=== PATIENT | female | born 1965 | race Caucasian/White ===

== ENCOUNTER → 2016-10-29 | Outpatient (CLI) | payer OTHER ==
[~2016-10-29] MED LIST: ALBUTEROL2.5 MG/31 IH; CIPRO500 MG PO; CIPROFLOXACIN500 M1 PO; IBUPROFEN 800800 M1 PO; IRON325 PO; MACROBID 100 M100 M2 PO; MEDROLDOSEPACK PO; MIRALAX17 GM PO; PEPCID20 MG PO; PERCOCET PO
== END ==
LOC: MRI 06:53
DX: R42 Dizziness and giddiness (principal); R41.3 Other amnesia; G51.0 Bell's palsy; R20.2 Paresthesia of skin

== ENCOUNTER 2017-09-12 19:07 | Emergency (ER) | payer OTHER ==
[~2017-09-12] VITALS: Ht 162.6 cm; Wt 90.7 kg
[2017-09-12 19:12] VITALS: BP 139/95
[2017-09-12] MEDS ORDERED: PRILOSEC OTC20 MG PO (19:17)
[2017-09-12] MEDS ORDERED: TAMIFLU6 MG/1 ML PO (19:34)
[2017-09-12] MEDS ORDERED: ALBUTEROL2.5 MG/31 INH (19:34)
[2017-09-12] MEDS ORDERED: VENTOLIN HFA 1818 GM INH (19:34)
[2017-09-12] MEDS ORDERED: OSELB75 PO (19:52)
== END 2017-09-12 19:53 | disposition home or self-care (01) ==
LOC: ER 19:07
DX: J11.1 Influenza due to unidentified influenza virus with other respiratory manifestations (principal); J45.909 Unspecified asthma, uncomplicated; I10 Essential (primary) hypertension; F41.9 Anxiety disorder, unspecified; F32.9 Major depressive disorder, single episode, unspecified; Z90.710 Acquired absence of both cervix and uterus; F17.210 Nicotine dependence, cigarettes, uncomplicated; Z88.1 Allergy status to other antibiotic agents; Z88.8 Allergy status to other drugs, medicaments and biological substances

== ENCOUNTER 2019-07-04 14:06 | Emergency (ER) | payer OTHER ==
[~2019-07-04] VITALS: Ht 160 cm; Wt 87.5 kg
[~2019-07-04 14:06] MED LIST changes: +ALBUTEROL2.5 MG/31 INH; +OSELB75 PO; +PRILOSEC OTC20 MG PO; +TAMIFLU6 MG/1 ML PO; +VENTOLIN HFA 1818 GM INH
[2019-07-04 14:07] VITALS: BP 156/100
[2019-07-04] MEDS ORDERED: CLEOCIN HCL150 MG PO (14:29)
[2019-07-04] MEDS ORDERED: NORCO 10-325 T1 EACH PO (14:29)
== END 2019-07-04 14:42 | disposition home or self-care (01) ==
LOC: ER 14:06
DX: K04.7 Periapical abscess without sinus (principal); I10 Essential (primary) hypertension; F41.9 Anxiety disorder, unspecified; F32.9 Major depressive disorder, single episode, unspecified; F17.210 Nicotine dependence, cigarettes, uncomplicated; Z90.710 Acquired absence of both cervix and uterus; Z90.49 Acquired absence of other specified parts of digestive tract; Z88.8 Allergy status to other drugs, medicaments and biological substances; Z88.6 Allergy status to analgesic agent

== ENCOUNTER → 2019-10-21 | Outpatient (CLI) | payer OTHER ==
[~2019-10-21] MED LIST changes: +CLEOCIN HCL150 MG PO; +NORCO 10-325 T1 EACH PO
== END ==
LOC: RAD 15:00
DX: J44.9 Chronic obstructive pulmonary disease, unspecified (principal)

== ENCOUNTER 2020-05-23 05:16 | Observation (INO) | payer OTHER ==
[~2020-05-23] VITALS: Ht 160 cm; Wt 90.7 kg
[~2020-05-23 05:16] MED LIST changes: +PROAIR HFA8.5 GM INH; +PROTONIX40 M2 PO; +XANAX 0.25 MG0.25 MG PO
[2020-05-23 05:20] VITALS: BP 153/84
[2020-05-23] MEDS ORDERED: PROVIGIL 200 M200 MG PO (05:27)
[2020-05-23 10:48] LABS: ABSOLUTE NEUTROPHILS 7.7 thou/uL (1.4-8.2); BASOPHILS 0.9 % (0.0-2.0); EOSINOPHILS 3.3 % (0.0-3.0); HEMATOCRIT 41.4 % (37.0-47.0); HEMOGLOBIN 13.3 gm/dL (12.0-15.0); LYMPHOCYTES 22.1 % (24.0-44.0); MCH 29.3 pg (26.0-34.0); MCHC 32.2 g/dL (28.0-37.0); MCV 91.1 fL (80.0-100.0); MONOCYTES 8.7 % (1.0-8.0); PLATELET COUNT 223 thou/uL (150-400); RBC 4.54 mil/uL (4.20-5.00); RDW 14.5 % (10.5-14.5); WBC 11.9 thou/uL (4.0-11.0)
[2020-05-23 10:56] LABS: CALCIUM 9.3 mg/dL (8.5-10.1); CREATININE 0.7 mg/dL (0.6-1.0); POTASSIUM 3.8 mmol/L (3.5-5.1)
[2020-05-23 11:10] LABS: TOTAL BILIRUBIN 0.4 mg/dL (0.2-1.0); TOTAL PROTEIN 7.3 g/dL (6.4-8.2)
[2020-05-23 14:27] LABS: CHOLESTEROL 156 mg/dL (<200); HDL CHOLESTEROL 55 mg/dL (>40); LDL CHOLESTEROL 80 mg/dL (<100); TC:HDL 2.8 Ratio (Not establshd); TRIGLYCERIDE 105 mg/dL (<150); VLDL 21 mg/dL (<40)
[2020-05-23 20:00] VITALS: BP 138/93
[2020-05-24 06:25] LABS: ALBUMIN 1.5 g/dL (3.4-5.0); CREATININE 0.3 mg/dL (0.6-1.0); PHOSPHORUS 1.1 mg/dL (2.5-4.9)
[2020-05-24 06:49] LABS: CALCIUM 5.2 mg/dL (8.5-10.1); POTASSIUM 2.7 mmol/L (3.5-5.1)
[2020-05-24 10:26] VITALS: BP 168/96
[2020-05-24] MEDS ORDERED: HYDROCODON-ACE1 EAC7 PO (13:50)
[2020-05-24] MEDS ORDERED: CLINDAMYCIN HC300 MG PO (13:53)
[2020-05-24 14:27] VITALS: BP 168/96
--- NOTE | 2020-05-24 15:14 | 2DMMODE ---
[facility] [place] [address] 2 D/M-MODE ECHOCARDIOGRAM Name: VALENTE ACKERMAN Room #: 170-15 ADM IN M.R.#: [id number] Admission: 05/23/20 Attend Phys: Esther James Discharge: Date of : 67 Report #: [id number] THIS REPORT FOR: cc: Monique Bui MD, Nora P. MD Lundgren, Craig H. MD [facility] ~ APPROVED REPORT Study performed: 05/24/2020 13:55:24 EXAM: Comprehensive 2D, Doppler, and color-flow Echocardiogram Patient Location: ER Status: routine BSA: 1.93 HR: 106 bpm BP: 168/96 mmHg Rhythm: Tachycardia Other Information Study Quality: Adequate Indications Cardiomegaly. Hx: COPD, HTN. 2D Dimensions RVDd: 47.81 mm IVSd: 9.39 (7-11mm) LVOT Diam: 17.80 (18-24mm) LVDd: 34.73 mm PWd: 8.24 (7-11mm) Ascending Ao: 30.75 (22-36mm) LVDs: 24.55 (25-40mm) Aortic Root: 26.02 mm Volumes Left Atrial Volume (Systole) Single Plane 4CH: 19.65 mL Single Plane 2CH: 19.95 mL LA ESV Index: 11.00 mL/m2 Aortic Valve AoV Peak Roberth.: 1.27 m/s AO Peak Gr.: 6.44 mmHg LVOT Max P.27 mmHg LVOT Max V: 1.03 m/s WILBERTO Vmax: 2.02 cm2 [facility] [address] [place] [address] 2 D/M-MODE ECHOCARDIOGRAM Name: MAYELAVALENTE HUI Room #: 170-15 [facility] IN ..#: [id number] Admission: 05/23/20 Attend Phys: Esther Lozada Discharge: Date of : 67 Report #: [id number] Mitral Valve E/A Ratio: 0.8 MV Decel. Time: 118.09 ms MV E Max Roberth.: 0.88 m/s MV A Roberth.: 1.10 m/s MV PHT: 34.25 ms IVRT: 76.12 ms Pulmonary Valve PV Peak Roberth.: 0.75 m/s PV Peak Gr.: 2.23 mmHg Pulmonary Vein P Vein S: 0.57 m/s P Vein A: 0.31 m/s P Vein D: 0.55 m/s P Vein A Dur.: 101.5 msec P Vein S/D Ratio: 1.04 Tricuspid Valve TR Peak Roberth.: 3.83 m/s RAP Estimate: 10.00 mmHg TR Peak Gr.: 59.00 mmHg PA Pressure: 69.00 mmHg Left Ventricle The left ventricle is normal size. Flattened septum consistent with right ventricular volume/pressure overload. There is normal left ventricular wall thickness. Left ventricular systolic function is normal. LVEF is 55-60%. Mild diastolic dysfunction is present. Right Ventricle Right ventricle is severely dilated. Right ventricle is moderately hypokinetic. Atria The left atrium size is normal. Right atrium is moderate to severely dilated. Aortic Valve The aortic valve is normal in structure. No aortic regurgitation is present. There is no aortic valvular stenosis. Mitral Valve The mitral valve is normal in structure. Trace mitral regurgitation. Tricuspid Valve The tricuspid valve is normal in structure. Severe tricuspid [facility] [place] [address] 2 D/M-MODE ECHOCARDIOGRAM Name: VALENTE ACKERMAN Room #: 170-15 ADM IN .R.#: [id number] Admission: 05/23/20 Attend Phys: Esther Lozada Discharge: Date of : 67 Report #: [id number] regurgitation. Estimated PAP is 65-70mmHg. Pulmonic Valve The pulmonary valve is normal in structure. Trace pulmonic regurgitation. Great Vessels The aortic root is normal in size. The ascending aorta is normal in size. IVC is normal in size and collapses <50% with inspiration. Pericardium There is no pericardial effusion. <Conclusion> Left ventricular systolic function is normal. Flattened septum consistent with right ventricular volume/pressure overload. LVEF is 55-60%. Mild diastolic dysfunction Right atrium and ventricle are severely dilated. Moderately hypokinetic right ventricle The aortic valve is normal in structure. No aortic regurgitation or stenosis The mitral valve is normal in structure. Trace mitral regurgitation. Severe tricuspid regurgitation. Estimated pulmonary artery pressure of 65-70mmHg. There is no pericardial effusion. <ELECTRONICALLY SIGNED> By: Dario Flores MD, FACC 05/24/201513 13 13 Dario Flores MD, FACC /INF
[2020-05-24 15:48] VITALS: BP 103/67
== END 2020-05-24 15:48 | disposition home or self-care (01) ==
LOC: ER 05:16 → EROBS 13:31
PROVIDERS: Emergency Medicine; ADMIT Hospitalist; ATTEND Hospitalist
DX: K04.7 Periapical abscess without sinus (principal); J45.909 Unspecified asthma, uncomplicated; J44.9 Chronic obstructive pulmonary disease, unspecified; I10 Essential (primary) hypertension; F41.9 Anxiety disorder, unspecified; F32.9 Major depressive disorder, single episode, unspecified; K21.9 Gastro-esophageal reflux disease without esophagitis; F17.210 Nicotine dependence, cigarettes, uncomplicated; Z79.899 Other long term (current) drug therapy; Z20.828 Contact with and (suspected) exposure to other viral communicable diseases

== ENCOUNTER → 2020-06-07 | Outpatient (CLI) | payer OTHER ==
[~2020-06-07] MED LIST changes: +CLINDAMYCIN HC300 MG PO; +HYDROCODON-ACE1 EAC7 PO; +PROVIGIL 200 M200 MG PO
== END ==
LOC: LAB 10:43
PROVIDERS: ATTEND Family Medicine
DX: Z20.828 Contact with and (suspected) exposure to other viral communicable diseases (principal)

== ENCOUNTER 2020-12-03 13:44 | Emergency (ER) | payer OTHER ==
[~2020-12-03] VITALS: Ht 160 cm; Wt 95.3 kg
[2020-12-03 15:13] LABS: URINE BILIRUBIN NEGATIVE (Negative); URINE BLOOD 1+ (Negative); URINE CLARITY CLEAR; URINE COLOR YELLOW; URINE GLUCOSE-RANDOM* NEGATIVE (Negative); URINE KETONES NEGATIVE (Negative); URINE LEUKOCYTES-REFLEX NEGATIVE (Negative); URINE NITRITE-REFLEX NEGATIVE (Negative); URINE PROTEIN (DIPSTICK) NEGATIVE (Negative); URINE SPECIFIC GRAVITY >= 1.030 (1.005-1.035); URINE UROBILINOGEN 0.2 E.U./dl (0.2-1.0)
[2020-12-03 15:22] LABS: BACTERIA-REFLEX None Seen /HPF (None Seen); CASTS None Seen /LPF (None Seen); CRYSTALS None Seen /LPF (None Seen); SQUAMOUS 0-3 Few /LPF (0-3); URINE RBC 1-2 Rare /HPF (NONE SEEN); URINE WBC-REFLEX 0-5 Rare /HPF (0-5)
[2020-12-03] MEDS ORDERED: PROVIGIL 200 M200 MG PO (15:23)
[2020-12-03 15:28] LABS: ABSOLUTE NEUTROPHILS 6.6 thou/uL (1.4-8.2); EOSINOPHILS 3.5 % (0.0-3.0); HEMOGLOBIN 14.6 gm/dL (12.0-15.0); LYMPHOCYTES 23.8 % (24.0-44.0); MCV 88.3 fL (80.0-100.0); MONOCYTES 7.1 % (1.0-8.0); PLATELET COUNT 254 thou/uL (150-400); POLYS 64.6 % (36.0-66.0); RBC 4.86 mil/uL (4.20-5.00); RDW 15.2 % (10.5-14.5); WBC 10.3 thou/uL (4.0-11.0)
[2020-12-03 15:34] LABS: ANION GAP 10 mmol/L (7-16); BUN 14 mg/dL (7-18); CALCIUM 9.4 mg/dL (8.5-10.1); CHLORIDE 107 mmol/L (98-107); CO2 24 mmol/L (21-32); GLUCOSE 107 mg/dL (74-106); SODIUM 141 mmol/L (136-145)
[2020-12-03 15:45] LABS: ALBUMIN 3.4 g/dL (3.4-5.0); AMYLASE 38 U/L (25-115); DIRECT BILIRUBIN 0.1 mg/dL (<0.1-0.2); LIPASE 107 U/L (73-393); MAGNESIUM 1.7 mg/dL (1.8-2.4); PHOSPHORUS 4.1 mg/dL (2.6-4.7); SGOT 30 U/L (15-37); SGPT 41 U/L (14-59); TOTAL BILIRUBIN 0.4 mg/dL (0.2-1.0); TOTAL PROTEIN 7.3 g/dL (6.4-8.2); TROPONIN-I <0.06 ng/mL (<0.06)
--- NOTE | 2020-12-03 16:39 | EKG ---
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: DEMARIO : 1965 Requested By: Ismael Armstrong Order Number: [id number] MD: Dario Flores Measurements Intervals [place] Rate: 116 P: 58 MT: 140 QRS: 226 QRSD: 97 T: 30 QT: 355 QTc: 494 Interpretive Statements Sinus tachycardia Right ventricular conduction delay Inferior infarct, old Baseline wander in lead(s) V1 Compared to ECG 05/22/2015 21:11:04 Early R wave progression is now present Inferior Q waves are now present Electronically Signed On 12-03-2020 16:38:46 CDT by Dario Flores [email or web address] <ELECTRONICALLY SIGNED> By: Dario Flores MD, [facility] 12/03/20 1638 1350 1350 Dario Flores MD, [facility] /EPI
[2020-12-03] MEDS ORDERED: ANUSOL-HC25 MG RECTAL (16:48)
[2020-12-03] MEDS ORDERED: COLACE100 MG PO (16:48)
[2020-12-03 17:31] VITALS: BP 105/58
== END 2020-12-03 17:32 | disposition home or self-care (01) ==
LOC: ER 13:44
PROVIDERS: Emergency Medicine
DX: K59.00 Constipation, unspecified (principal); K64.9 Unspecified hemorrhoids; G89.29 Other chronic pain; R10.84 Generalized abdominal pain; I10 Essential (primary) hypertension; J44.9 Chronic obstructive pulmonary disease, unspecified; K21.9 Gastro-esophageal reflux disease without esophagitis; F17.210 Nicotine dependence, cigarettes, uncomplicated; Z90.710 Acquired absence of both cervix and uterus; Z90.49 Acquired absence of other specified parts of digestive tract; Z79.899 Other long term (current) drug therapy; Z88.8 Allergy status to other drugs, medicaments and biological substances

== ENCOUNTER → 2020-12-15 | Outpatient (CLI) | payer OTHER ==
[~2020-12-15] MED LIST changes: +ANUSOL-HC25 MG RECTAL; +COLACE100 MG PO
== END ==
LOC: SJCVCIMAG 11:28
PROVIDERS: ATTEND Internal Medicine
DX: I07.1 Rheumatic tricuspid insufficiency (principal); R53.83 Other fatigue; R06.00 Dyspnea, unspecified; I50.9 Heart failure, unspecified; R00.0 Tachycardia, unspecified; I27.20 Pulmonary hypertension, unspecified; Z86.16 Personal history of COVID-19

== ENCOUNTER 2020-12-24 06:44 | Inpatient (IN) | payer OTHER ==
[~2020-12-24] VITALS: Ht 160 cm; Wt 99.8 kg
[2020-12-24 06:47] VITALS: BP 161/104
[2020-12-24 08:09] LABS: ABSOLUTE NEUTROPHILS 5.6 thou/uL (1.4-8.2); BASOPHILS 1.1 % (0.0-2.0); EOSINOPHILS 2.5 % (0.0-3.0); HEMATOCRIT 43.9 % (37.0-47.0); HEMOGLOBIN 14.4 gm/dL (12.0-15.0); LYMPHOCYTES 22.6 % (24.0-44.0); MCH 29.4 pg (26.0-34.0); MCHC 32.7 g/dL (28.0-37.0); MCV 89.9 fL (80.0-100.0); MONOCYTES 6.4 % (1.0-8.0); PLATELET COUNT 241 thou/uL (150-400); POLYS 67.4 % (36.0-66.0); RBC 4.89 mil/uL (4.20-5.00); RDW 15.3 % (10.5-14.5); WBC 8.3 thou/uL (4.0-11.0)
[2020-12-24 08:20] LABS: ANION GAP 8 mmol/L (7-16); BUN 17 mg/dL (7-18); CALCIUM 9.6 mg/dL (8.5-10.1); CHLORIDE 107 mmol/L (98-107); CO2 27 mmol/L (21-32); GLUCOSE 100 mg/dL (74-106); POTASSIUM 4.1 mmol/L (3.5-5.1); SODIUM 142 mmol/L (136-145)
[2020-12-24 08:30] LABS: ALBUMIN 3.2 g/dL (3.4-5.0); SGOT 27 U/L (15-37); SGPT 32 U/L (14-59); TOTAL BILIRUBIN 0.3 mg/dL (0.2-1.0); TOTAL PROTEIN 7.5 g/dL (6.4-8.2); TROPONIN-I <0.06 ng/mL (<0.06)
[2020-12-24 10:28] VITALS: BP 110/61
[2020-12-24 11:54] VITALS: BP 117/82
--- NOTE | 2020-12-24 14:07 | NUR ---
RECEIVED PT FROM ED. ADMISSION COMPLETED. PT IS AXOX4, PLEASANT, C/O PAIN IN CHEST MIDSTERNAL FROM SOA WITH EXERTION. PT IS ORTHOPNIC AND HAS HOB RAISED FOR COMFORT. VSS, AFEBRILE, SR-ST ON MONITOR. 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 DR ELLIS CONSULTED. PT MAY HAVE POSS CARDIAC INTERVENTION. ABX THERAPY INITIATED. PT CONTINUES ON ROOM AIR, WITH O2 SATs 90s%+. FALL PRECAUTIONS IN PLACE. FREQUENT ROUNDING.
[2020-12-24 15:07] VITALS: BP 100/51
[2020-12-24 20:16] VITALS: BP 106/75
[2020-12-24 23:37] VITALS: BP 100/64
[2020-12-25 04:35] VITALS: BP 103/86
--- NOTE | 2020-12-25 07:44 | NUR ---
ASSUME CARE 1900. PT/VITALS STABLE. CONSISTENT NON CARDIAC CHEST PAIN. NORCO FOR RELIEF, WITH MILD RELIOEF PER PT. TOLERATE ACTIVITY WELL. STEADY GAIT. ASSESSMENT CHARTED. SR ON MONITOR WITH CONTROLLED HR. PROGRESSING MODERATELY TO POC. PLAN IS TO CONTINUE TO DIURESE PT. WILL CONTINUE TO MONITOR AND FOLLOW WITH POC
[2020-12-25 07:58] VITALS: BP 119/92
--- NOTE | 2020-12-25 08:13 | HC ---
[facility] [place] [address] CONSULTATION Name: VALENTE ACKERMAN Room #: 207-P ADM IN M.R.#: [id number] Admission: 12/24/20 Attend Phys: Gillian Malave MD Discharge: Date of : 67 Report #: [id number] THIS REPORT FOR: cc: Monique Bui MD, Nora P. MD Park, Jin S. MD ~ DOC #: [id number] Juan Lee MD DATE OF SERVICE: 12/24/2020 CARDIOLOGY CONSULTATION INDICATION: Dyspnea. HISTORY OF PRESENT ILLNESS: This is a 55-year-old female with a history of COPD, GERD, tobacco use, COVID infection in the fall of 2019, presenting with increasing shortness of breath and edema. Over the past several months, she has noted more dyspnea with walking. Now, she gets out of breath just walking to the bathroom. During that time, she has experienced increased edema and orthopnea. She also reports substernal chest discomfort with walking, usually accompanying the shortness of breath. She had a recent echo revealing normal LV systolic function and evidence for pulmonary hypertension with right-sided chamber enlargement. The patient was started on oral Lasix, but symptoms persisted. When the Lasix dose was increased, she developed orthostatic lightheadedness. PAST MEDICAL HISTORY: COPD with chronic tobacco use. COVID infection in the fall of 2019. History of GERD. Echo from December 2020 reveals normal LV systolic function, increased right-sided chamber enlargement with severe pulmonary hypertension. ALLERGIES: DEMEROL, MOLDS NAPROXEN. MEDICATIONS: At home include Lasix, ibuprofen, Protonix, albuterol and Provigil. SOCIAL HISTORY: Used to smoke 2 packs of cigarettes per day, now 2 packs per week. FAMILY HISTORY: Negative for premature CAD. REVIEW OF SYSTEMS: A full 10-point review of systems performed. Only the pertinent positives and negatives are described in the HPI. PHYSICAL EXAMINATION: VITAL SIGNS: Blood pressure is 118/70, heart rate is 95 beats per minute. [facility] [address] [place] [address] CONSULTATION Name: VALENTE ACKERMAN SHOSHANA Room #: 207-[facility] IN M.R.#: [id number] Admission: 12/24/20 Attend Phys: Gillian Malave MD Discharge: Date of : 67 Report #: [id number] GENERAL: She is a well-developed, well-nourished female, in no acute distress. HEENT: Normocephalic, atraumatic. Oral mucosa moist. NECK: Supple. LUNGS: CTA. HEART: Regular rate and rhythm. S1, S2 positive. ABDOMEN: Soft, nontender. EXTREMITIES: 1-2+ bilateral lower extremity edema. ECG reveals sinus rhythm, Q-waves inferiorly, incomplete right bundle branch block. ST segment depression in V2 to V4. LABORATORY DATA: White count is 8.3, hemoglobin is 14.4, sodium 142, creatinine is 1.0. Troponin is negative. CTA is negative for PE. ASSESSMENT AND PLAN: 1. Chest pain syndrome, reports chest pain with walking. EKG is abnormal, but the initial troponin level is negative. We will probably proceed with right and left cardiac catheterization to rule out coronary artery disease and assess pulmonary artery pressures. 2. Dyspnea on exertion, most likely attributed to pulmonary hypertension of unclear etiology. Has prior history of COPD and chronic tobacco use, would benefit from a pulmonary evaluation. 3. Edema, attributed to cor pulmonale. Gentle diuresis at this time. 4. Tobacco use. Complete smoking cessation is advised. Juan Lee MD JP/NATASHA <ELECTRONICALLY SIGNED> By: Juan Lee MD 12/25/20 0813 1116 2213 Juan Lee MD /nt
--- NOTE | 2020-12-25 08:41 | NUR ---
ASSUMED PT CARE AT 0700. 0835, ASSESSMENT PERFORMED CHARTED, MEDICATION ADMINISTRATION. VSS. PT RESTING WITH ASLEEP IN THE CHAIR. PT VOICES NO CONCERNS AT THIS TIME. WILL CONTINUE TO MONITOR AND FOLLOW POC.
[2020-12-25 11:27] VITALS: BP 112/71
--- NOTE | 2020-12-25 11:39 | NUR ---
PT RESTING. EDUCATED PT ON PLAN TOMORROW FOR A CARDIAC CATH, NOTIFIED PT OF NEEDING AN IV IN THE RIGHT ARM, PT REQUEST IV TEAM TO DO IV, I ASKED THE PATIENT IF SHE WOULD MIND ME LOOKING FOR AN IV, HOWEVER SHE REFUSED. VSS. ASSESSMENT UNCHANGED. WILL CONTINUE TO MONITOR AND FOLLOW POC.
[2020-12-25 15:15] VITALS: BP 116/69
--- NOTE | 2020-12-25 15:43 | NUR ---
PT SITTING UP IN BED PLAYING IN PHONE, ASSESSMENT UNCHANGED, VSS. WILL CONTINUE TO MONITOR AND FOLLOW POC.
[2020-12-25 19:48] VITALS: BP 116/75
[2020-12-26 03:42] VITALS: BP 120/81
[2020-12-26 03:55] LABS: CALCIUM 9.4 mg/dL (8.5-10.1); CREATININE 0.9 mg/dL (0.6-1.0); POTASSIUM 4.1 mmol/L (3.5-5.1)
[2020-12-26 07:50] VITALS: BP 109/73
--- NOTE | 2020-12-26 08:27 | EKG ---
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: Fiona ARROYO : 1965 Requested By: Jessica Hawk Order Number: [id number] MD: Dario Flores Measurements Intervals [place] Rate: 109 P: 54 AR: 158 QRS: 213 QRSD: 95 T: 26 QT: 349 QTc: 471 Interpretive Statements Sinus tachycardia Consider RVH Inferior infarct, age indeterminate Compared to ECG 12/03/2020 13:50:58 No significant change was found Electronically Signed On 12-26-2020 8:27:39 CDT by Dario Flores [email or web address] <ELECTRONICALLY SIGNED> By: Dario Flores MD, [facility] 12/26/20826 1 1 Dario Flores MD, [facility] /EPI
--- NOTE | 2020-12-26 08:28 | EKG ---
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 Machine Operator: Fiona ARROYO : 1965 Requested By: Jessica Hawk Order Number: [id number] MD: Dario Flores Measurements Intervals [place] Rate: 108 P: 49 VT: 148 QRS: 198 QRSD: 101 T: 11 QT: 360 QTc: 483 Interpretive Statements Sinus tachycardia Probable left atrial enlargement Probable RVH w/ secondary repol abnormality Inferolateral infarct, old Compared to ECG 12/24/2020 07:12:44 Lateral Q waves are now present Electronically Signed On 12-26-2020 8:28:45 CDT by Dario Flores [email or web address] <ELECTRONICALLY SIGNED> By: Dario Flores MD, [facility] 12/26/2028 7 7 Dario Flores MD, [facility] /EPI
--- NOTE | 2020-12-26 08:36 | NUR ---
ASSUMED PT CARE AT 0700. PT SITTING UP ON THE SIDE OF BED ANXIOUS ABOUT PROCEDURE. PT WAS NOT GIVEN PO SCHEDULED ANXIETY MED THIS MORNING WITH PM SHIFT HOWEVER WAS GIVEN ON DAY SHIFT. PTS ASSESSMENT PERFORMED CHARTED. PTS MOTHER AT BEDSIDE. VSS. WILL CONTINUE TO MONITOR AND FOLLOW POC.
--- NOTE | 2020-12-26 08:45 | EKG ---
[place] [address] [facility] [place] [address] ELECTROCARDIOGRAM REPORT Name: VALENTE ACKERMAN Room #: 207- ADM IN M.R.#: [id number] Admission: 12/24/20 Attend Phys: Gillian Malave MD Discharge: Date of : 67 Report #: [id number] [facility] Test Date: 2020-12-25 Test Time: 11:34:43 Pat Name: VALENTE ACKERMAN Department: Room: 207 P Gender: F Neurodiagnostic Technologist: BRITTANY : 1965 Requested By: Juan Lee Order Number: [id number] MD: Dario Flores Measurements Intervals [place] Rate: 94 P: 70 UT: 151 QRS: 217 QRSD: 101 T: 32 QT: 375 QTc: 469 Interpretive Statements Sinus rhythm RVH with secondary repolarization abnrm Inferior infarct, old Compared to ECG 12/24/2020 07:28:45 Sinus tachycardia no longer present Electronically Signed On 12-26-2020 8:45:45 CDT by Dario Flores [email or web address] <ELECTRONICALLY SIGNED> By: Dario Flores MD, [facility] 12/26/20 0845 1134 1134 Dario Flores MD, [facility] /EPI
--- NOTE | 2020-12-26 11:04 | NUR ---
PT IN STAFF ASSISTANT FOR HEART CATH.
--- NOTE | 2020-12-26 12:33 | NUR ---
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 vss. will continue to monitor and follow poc. pt voices the want to go home after bedrest.
[2020-12-26 15:00] VITALS: BP 111/70
--- NOTE | 2020-12-26 16:49 | NUR ---
PTS BEDREST COMPLETED AT 1400. PTS GROING SITE IS CLEAN DRY WITH DRESSING INTACT AND NO HEMATOMA PRESENT. PT RESTING AND VOICES NO CONCERNS AT THIS TIME.
[2020-12-26 19:40] VITALS: BP 112/76
[2020-12-26 23:00] VITALS: BP 110/80
[2020-12-27 04:37] VITALS: BP 117/73
--- NOTE | 2020-12-27 04:38 | NUR ---
SLEPT PART OF SHIFT. UP TO BATHROOM WITH STEADY GAIT. USES WALKER IF IN MAE. RIGHT GROIN DSG C/D/I, NO BLEEDING OR HEMOTOMA NOTED. PATIENT REFUSES TO HAVE BLOOD DRAWN STATING THEY NEVER GET IT. TEACHING FOR IMPORTANCE OF AM LABS. PATIENT STATES SHE DOESNT CARE SHE WILL NOT ALLOW. IMFORMED LAB OF CONTINUED REFUSAL. WORKING ON GOALS AND PLAN OF CARE FOR NOC. PLANS FOR DISCHARGE THIS AM.
[2020-12-27 07:35] VITALS: BP 100/69
[2020-12-27 12:22] LABS: CALCIUM 9.7 mg/dL (8.5-10.1); CREATININE 0.9 mg/dL (0.6-1.0); POTASSIUM 4.2 mmol/L (3.5-5.1)
[2020-12-27 15:15] VITALS: BP 118/86
[2020-12-27 19:46] VITALS: BP 116/72
[2020-12-28 04:00] VITALS: BP 110/68
[2020-12-28 05:19] LABS: HEMATOCRIT 44.6 % (37.0-47.0); HEMOGLOBIN 14.6 gm/dL (12.0-15.0); MCH 29.4 pg (26.0-34.0); MCHC 32.7 g/dL (28.0-37.0); MCV 90.1 fL (80.0-100.0); RBC 4.95 mil/uL (4.20-5.00); RDW 15.1 % (10.5-14.5); WBC 6.2 thou/uL (4.0-11.0)
--- NOTE | 2020-12-28 05:23 | NUR ---
SLEPT MOST OF SHIFT. NO PRESENT COMPLAINTS OF PAIN OR SHORTNESS OF AIR. WORKING ON GOALS AND PLAN OF CARE FOR NOC. PLANS FOR POSSIBLE DISCHARGE HOME TODAY. UP TO BATHROOM WITH STEADY GAIT. CONTINUE TO ASSES CLOSELY.
[2020-12-28 05:51] LABS: CALCIUM 9.1 mg/dL (8.5-10.1); CREATININE 0.9 mg/dL (0.6-1.0); POTASSIUM 3.6 mmol/L (3.5-5.1)
[2020-12-28 07:48] VITALS: BP 123/75
[2020-12-28 11:14] VITALS: BP 109/66
[2020-12-28] MEDS ORDERED: DOXYCYCLINE 10100 M2 PO (11:27)
[2020-12-28] MEDS ORDERED: LASIX 40 MG TAB40 MG PO (11:27)
[2020-12-28 12:38] VITALS: BP 109/66
--- NOTE | 2020-12-28 14:05 | NUR ---
PT IS AXOX4, PLEASANT; HAS SOME CHEST PAIN, BUT STATES RX PAIN REGIMEN HAS TAKEN THE EDGE OFF. VSS, AFEBRILE, SR ON MONITOR. DR POLLACK CONSULTED, DR ELLIS CONSULTED, DR ELLIS CONSULTED. PT TO D/C TO HOME TODAY. PT COMMNUNICATED UNDERSTANDING REGARDING MEDICATIONS PRIOR TO DISCHARGE. DISCUSSED FOLLOW UP APPT AND MEDICATIONS. PT DISCHARGE HOME IN PERSONAL VEHICLE. NO CONCERNS AT THIS TIME.
[2020-12-29 20:06] LABS: ANA INTERPRETATION Positive (())
== END 2020-12-28 14:08 | disposition home or self-care (01) | DRG 603 ==
LOC: ER 06:44 → 2N 10:20 → EROBS 10:20 → 2N 10:20
PROVIDERS: Emergency Medicine; Hospitalist; Internal Medicine Cardiovascular Disease; Pediatrics; ADMIT Hospitalist; ATTEND Hospitalist
DX: L03.116 Cellulitis of left lower limb (principal); R07.9 Chest pain, unspecified; L03.115 Cellulitis of right lower limb; I27.20 Pulmonary hypertension, unspecified; I27.81 Cor pulmonale (chronic); F41.9 Anxiety disorder, unspecified; F32.9 Major depressive disorder, single episode, unspecified; J44.9 Chronic obstructive pulmonary disease, unspecified; K21.9 Gastro-esophageal reflux disease without esophagitis; I50.9 Heart failure, unspecified; I11.0 Hypertensive heart disease with heart failure; F17.210 Nicotine dependence, cigarettes, uncomplicated; I07.1 Rheumatic tricuspid insufficiency; Z79.899 Other long term (current) drug therapy; Z90.49 Acquired absence of other specified parts of digestive tract; Z86.16 Personal history of COVID-19; Z72.89 Other problems related to lifestyle; Z90.710 Acquired absence of both cervix and uterus; Z88.5 Allergy status to narcotic agent; Z88.8 Allergy status to other drugs, medicaments and biological substances
CPT/HCPCS: 10081

== ENCOUNTER → 2021-03-01 | Outpatient (CLI) | payer OTHER ==
[~2021-03-01] MED LIST changes: +DOXYCYCLINE 10100 M2 PO; +LASIX 40 MG TAB40 MG PO
[2021-03-01 16:29] LABS: ABSOLUTE NEUTROPHILS 5.7 thou/uL (1.4-8.2); BASOPHILS 0.9 % (0.0-2.0); EOSINOPHILS 2.6 % (0.0-3.0); HEMATOCRIT 55.5 % (37.0-47.0); HEMOGLOBIN 18.2 gm/dL (12.0-15.0); LYMPHOCYTES 28.4 % (24.0-44.0); MCH 29.4 pg (26.0-34.0); MCHC 32.9 g/dL (28.0-37.0); MCV 89.5 fL (80.0-100.0); PLATELET COUNT 298 thou/uL (150-400); POLYS 61.1 % (36.0-66.0); RDW 14.9 % (10.5-14.5); WBC 9.3 thou/uL (4.0-11.0)
[2021-03-01 16:57] LABS: ALBUMIN 4.1 g/dL (3.4-5.0); CALCIUM 9.9 mg/dL (8.5-10.1); CREATININE 0.9 mg/dL (0.6-1.0); TOTAL BILIRUBIN 0.6 mg/dL (0.2-1.0); TOTAL PROTEIN 8.5 g/dL (6.4-8.2)
== END ==
LOC: RAD 15:06
PROVIDERS: ATTEND Family Medicine
DX: I50.9 Heart failure, unspecified (principal); R53.83 Other fatigue; R05 Cough; R06.00 Dyspnea, unspecified

== ENCOUNTER 2021-05-06 02:26 | Inpatient (IN) | payer OTHER ==
[~2021-05-06] VITALS: Ht 160 cm; Wt 96.2 kg
[2021-05-06] VITALS (8 sets, daily range): BP systolic 107–179; BP diastolic 68–133
[2021-05-06] MEDS ORDERED: TRELEGY ELLIPT1 EACH (02:43)
[2021-05-06 04:03] LABS: ABSOLUTE NEUTROPHILS 6.1 thou/uL (1.4-8.2); EOSINOPHILS 1.6 % (0.0-3.0); HEMOGLOBIN 15.7 gm/dL (12.0-15.0); LYMPHOCYTES 24.4 % (24.0-44.0); MCH 28.7 pg (26.0-34.0); MCHC 32.6 g/dL (28.0-37.0); MCV 87.9 fL (80.0-100.0); MONOCYTES 7.4 % (1.0-8.0); PLATELET COUNT 258 thou/uL (150-400); POLYS 65.6 % (36.0-66.0); RBC 5.46 mil/uL (4.20-5.00); RDW 15.7 % (10.5-14.5); WBC 9.3 thou/uL (4.0-11.0)
[2021-05-06 04:06] LABS: CALCIUM 9.4 mg/dL (8.5-10.1); CREATININE 0.9 mg/dL (0.6-1.0); POTASSIUM 4.8 mmol/L (3.5-5.1)
--- NOTE | 2021-05-06 09:48 | EKG ---
[place] [address] 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: evelyn mills : 1965 Requested By: Yasmin Chan Order Number: [id number] MD: Chriss Pearce Measurements Intervals [place] Rate: 110 P: 63 RI: 132 QRS: 199 QRSD: 103 T: 29 QT: 363 QTc: 492 Interpretive Statements Sinus tachycardia RVH with secondary repolarization abnrm Inferior infarct, old Compared to ECG 12/25/2020 11:34:43 Sinus rhythm no longer present Myocardial infarct finding still present Electronically Signed On 05-06-2021 9:48:03 CDT by Chriss Pearce [email or web address] <ELECTRONICALLY SIGNED> By: Chriss Pearce MD, [facility] 05/06/21 0948 0359 0359 Chriss Pearce MD, [facility] /EPI
--- NOTE | 2021-05-06 14:47 | NUR ---
PT DOES NOT WANT OR NEED OT PER PATIENT. SEE OT VARIANCE
--- NOTE | 2021-05-06 14:48 | NUR ---
PT ARRIVED TO UNIT AT SHIFT CHANGE FROM ER. PT DROWSY ORIENTED. VSS. DENIES PAIN. C/O SOB WITH ACTIVITY. ADMISSION COMPLETE CONSENTS SIGNED. SCDS APPLIED. PT SEEN BY PHYSICIAN ORDERS RECEIVED. PT REQUESTS NICOTINE PATCH. PT SEEN BY OT/PHYS THERAPY HODAN GREENE. C/O HEADACHE IN AFTERNOON TREATED WITH PO MEDS. PT CURRENTLY RESTING IN NAP. CONT POC.
--- NOTE | 2021-05-06 16:13 | NUR ---
PATIENT REFUSED PHYSICAL THERAPY EVALUATION, REPORTS SHE IS GETTING AROUND JUST LIKE AT HOME AND DOESNT NEED THE THERAPY NOW OR AT DISCHARGE
[2021-05-07 03:34] VITALS: BP 137/76
[2021-05-07 08:10] VITALS: BP 134/97
[2021-05-07 16:30] VITALS: BP 141/100
--- NOTE | 2021-05-07 17:18 | NUR ---
NO VISITORS DURING SHIFT. PT STATED BACK PAIN THIS AM AND ANXIETY PT RECEIVED PAIN MEDICATION AND XANAX COMPLAINTS RESOLVED. PT TOOK A SHOWER. PT REMAINED IN SINUS RHYTHM, VITALS REMAINED STABLE, AFEBRILE. PT DENIES ADDITIONAL COMPLAINTS.
[2021-05-07 20:21] VITALS: BP 127/88
[2021-05-08 03:37] VITALS: BP 136/100
--- NOTE | 2021-05-08 05:34 | NUR ---
PT REMAIN ALERT AND ORIENT TIMES FOUR. SLEEPY DURING THE SHIFT. C/O MILD MID BACK PAIN. STATE THAT TRAMADOL EASED "IT UP SOME". VSS, AFEBRILE. SR-ST PER MONITOR. VSS. REMAIN IN CONFIDENTAL STATUS.,
[2021-05-08 08:00] VITALS: BP 130/93
[2021-05-08 11:10] VITALS: BP 130/93
--- NOTE | 2021-05-08 11:56 | NUR ---
pT REMAINED SAFE DURING THE FIRST HRS OF THE SHIFT. WAITING ON TRASPORT TO ANOTHER UNIT. POC TO BE CONT'D BEFORE DISCHARGED.
[2021-05-08] MEDS ORDERED: NICOTINE1 EACH TRANSDERM (12:36)
[2021-05-08] MEDS ORDERED: LASIX 40 MG TAB40 MG PO (12:36)
[2021-05-08] MEDS ORDERED: LIDOPATCH1 EACH TRANSDERM (12:36)
[2021-05-08] MEDS ORDERED: PREDNISONE 20 M20 M1 PO (12:36)
[2021-05-08] MEDS ORDERED: PROTONIX 20 MG20 M1 PO (12:36)
[2021-05-08] MEDS ORDERED: ACETAMINOPHEN325 M1 PO (12:36)
--- NOTE | 2021-05-08 13:32 | 2DMMODE ---
[facility] [place] [address] 2 D/M-MODE ECHOCARDIOGRAM Name: VALENTE ACKERMAN Room #: 210-P ADM IN M.R.#: [id number] Admission: 05/06/21 Attend Phys: Wes Domínguez MD Discharge: Date of : 67 Report #: [id number] THIS REPORT FOR: cc: Monique Bui MD, Nora P. MD Park, Jin S. MD ~ APPROVED REPORT Study performed: 05/08/2021 12:09:46 EXAM: Comprehensive 2D, Doppler, and color-flow Echocardiogram Patient Location: Bedside Room #: 210 Status: routine BSA: 1.98 HR: 116 bpm BP: 130/93 mmHg Rhythm: Tachycardia Other Information Study Quality: Adequate Indications Pulmonary HTN. SOA. 2D Dimensions IVSd: 8.98 (7-11mm) LVOT Diam: 18.59 (18-24mm) LVDd: 38.06 mm PWd: 9.02 (7-11mm) LVDs: 19.58 (25-40mm) Left Atrium: 32.79 (27-40mm) Aortic Root: 28.16 mm Volumes Left Atrial Volume (Systole) Single Plane 4CH: 37.60 mL Single Plane 2CH: 33.68 mL LA ESV Index: 22.00 mL/m2 Aortic Valve AoV Peak Roberth.: 1.25 m/s AO Peak Gr.: 6.23 mmHg LVOT Max P.96 mmHg LVOT Max V: 0.86 m/s WILBERTO Vmax: 1.87 cm2 [facility] [address] [place] [address] 2 D/M-MODE ECHOCARDIOGRAM Name: VALENTE ACKERMAN Room #: 210-P [facility] IN [facility]#: [id number] Admission: 05/06/21 Attend Phys: Wes Domínguez MD Discharge: Date of : 67 Report #: [id number] Pulmonary Valve PV Peak Roberth.: 0.79 m/s PV Peak Gr.: 2.47 mmHg Tricuspid Valve TR Peak Roberth.: 4.06 m/s RAP Estimate: 10.00 mmHg TR Peak Gr.: 66.00 mmHg PA Pressure: 76.00 mmHg Left Ventricle The left ventricle is normal size. Flattened septum consistent with right ventricular pressure overload. There is normal left ventricular wall thickness. Left ventricular systolic function is normal. LVEF is 55-60%. This study is not technically sufficient to allow evaluation of the LV diastolic function due to tachycardia. Right Ventricle Right ventricle is dilated. Atria The left atrium size is normal. Right atrium is dilated. Aortic Valve The aortic valve is normal in structure. No aortic regurgitation is present. There is no aortic valvular stenosis. Mitral Valve The mitral valve is normal in structure. There is no mitral valve regurgitation noted. No evidence of mitral valve stenosis. Tricuspid Valve The tricuspid valve is normal in structure. Mild to moderate tricuspid regurgitation. Severe pulmonary hypertension with an estimated PAP of 73mmHg. Pulmonic Valve The pulmonary valve is normal in structure. Trace pulmonic regurgitation. Great Vessels The aortic root is normal in size. IVC is normal in size and collapses <50% with inspiration. Pericardium There is no pericardial effusion. <Conclusion> [facility] [address] [place] [address] 2 D/M-MODE ECHOCARDIOGRAM Name: VALENTE ACKERMAN Room #: 210-[facility] IN .R.#: [id number] Admission: 05/06/21 Attend Phys: Wes Domínguez MD Discharge: Date of : 67 Report #: [id number] The left ventricle is normal size. There is normal left ventricular wall thickness. Left ventricular systolic function is normal. Right ventricle is dilated. Right atrium is dilated. The aortic valve is normal in structure. There is no mitral valve regurgitation noted. Mild to moderate tricuspid regurgitation. Severe pulmonary hypertension with an estimated PAP of 73mmHg. <ELECTRONICALLY SIGNED> By: Juan Lee MD 05/08/211331 31 31 Juan Lee MD /INF
[2021-05-08 15:15] VITALS: BP 137/97
[2021-05-08 15:48] VITALS: BP 130/93
--- NOTE | 2021-05-08 16:12 | NUR ---
met with patient she admits with CHF. Patient reports she lives with her mother who works at [employer]. She was working at [employer] but now on medical leave since December. Patient reports she has pulmonary hypertention. Patient reports she lives with her mom. She has a boyfriend who checks on her frequently. She has a bath chair. She reports she is independent with adls and reports just takes her some time to complete tasks but she is independent. Ronen thurmanaled and discharged patient. Reviewed home health care and process. Patient does not feel she needs home health care. Updated phys. Encouraged to call PCP if she changes her mind
[2021-05-09 09:08] LABS: ANTI-DNA SCREEN 1 IU/mL (0-9); ANTI-RNP <0.2 AI (0.0-0.9)
== END 2021-05-08 17:19 | disposition home health service (06) | DRG 291 ==
LOC: ER 02:26 → EROBS 05:16 → 2N 05:16 → 4W 05-08 11:24 → 2N 05-08 13:06
PROVIDERS: Emergency Medicine; Pediatrics; ADMIT Hospitalist; ATTEND Hospitalist
DX: I11.0 Hypertensive heart disease with heart failure (principal); J96.21 Acute and chronic respiratory failure with hypoxia; I50.33 Acute on chronic diastolic (congestive) heart failure; J44.9 Chronic obstructive pulmonary disease, unspecified; F41.9 Anxiety disorder, unspecified; F32.9 Major depressive disorder, single episode, unspecified; K21.9 Gastro-esophageal reflux disease without esophagitis; E66.01 Morbid (severe) obesity due to excess calories; Z68.37 Body mass index [BMI] 37.0-37.9, adult; F17.210 Nicotine dependence, cigarettes, uncomplicated; Z20.822 Contact with and (suspected) exposure to COVID-19
CPT/HCPCS: 10081

== ENCOUNTER → 2021-07-10 | Outpatient (CLI) | payer OTHER ==
[~2021-07-10] MED LIST changes: +ACETAMINOPHEN325 M1 PO; +LIDOPATCH1 EACH TRANSDERM; +NICOTINE1 EACH TRANSDERM; +PREDNISONE 20 M20 M1 PO; +PROTONIX 20 MG20 M1 PO; +TRELEGY ELLIPT1 EACH
== END ==
LOC: RAD 14:02
PROVIDERS: ATTEND Family Medicine
DX: Z12.31 Encounter for screening mammogram for malignant neoplasm of breast (principal); N64.89 Other specified disorders of breast

== ENCOUNTER → 2021-07-11 | Outpatient (CLI) | payer OTHER | LOC: RAD 14:24 | PROVIDERS: ATTEND Family Medicine | DX: R92.2 Inconclusive mammogram (principal) ==